=== PATIENT | female | born 1950 | race Caucasian/White ===

== ENCOUNTER 2021-05-04 15:06 | Emergency (ER) | payer MEDICARE, MEDICAID ==
[~2021-05-04] VITALS: Ht 154.9 cm; Wt 68.8 kg
[~2021-05-04 15:06] MED LIST: ALD25T PO; ATOR10TA PO; CALC1TAB77 PO; HCTZ25T PO; HYDR-4383 PO; LISI20TA28 PO; PANT-47 PO; RIVA10TA PO; SIMV10TA2 PO; SOTA80TA73 PO
[2021-05-04 16:27] LABS: BASOPHILS # (AUTO) 0.1 X10'3 (0-0.2); BASOPHILS % (AUTO) 0.7 % (0-1); EOSINOPHILS # (AUTO) 0.1 X10'3 (0-0.9); HEMATOCRIT 44.7 % (35.0-45.0); LYMPHOCYTES # (AUTO) 1.2 X10'3 (1.1-4.8); LYMPHOCYTES % (AUTO) 13.6 % (21-51); MEAN CORPUSCULAR HEMOGLOBIN 32.2 PG (27.0-31.0); MEAN CORPUSCULAR HGB CONC 33.4 g/dL (33.0-36.5); MEAN CORPUSCULAR VOLUME 96.1 FL (78-98); MEAN PLATELET VOLUME 7.9 FL (7.4-10.4); MONOCYTES # (AUTO) 1.1 X10'3 (0-0.9); MONOCYTES % (AUTO) 12.4 % (2-12); NEUTROPHILS # (AUTO) 6.2 X10'3 (1.8-7.7); NEUTROPHILS % (AUTO) 72.3 % (42-75); PLATELET COUNT 249 X10'3 (140-440); RED BLOOD COUNT 4.65 X10'6 (4.20-5.60); RED CELL DISTRIBUTION WIDTH 13.5 % (11.5-14.5); WHITE BLOOD COUNT 8.6 X10'3 (4.5-11.0)
[2021-05-04 16:48] LABS: ALANINE AMINOTRANSFERASE 28 U/L (12-78); ALBUMIN 3.6 G/DL (3.4-5.0); ALKALINE PHOSPHATASE 90 IU/L (46-116); ANION GAP 5 (8-16); ASPARTATE AMINO TRANSFERASE 25 U/L (10-37); BLOOD UREA NITROGEN 26 MG/DL (7-18); BUN/CREATININE RATIO 29.9 (6.6-38.0); CHLORIDE 95 MMOL/L (99-107); CREATININE 0.87 MG/DL (0.40-0.90); GLUCOSE 106 MG/DL (70-104); POTASSIUM 4.3 MMOL/L (3.5-5.1); SODIUM 132 MMOL/L (135-145); TOTAL CARBON DIOXIDE 31.6 MMOL/L (24-32); TOTAL PROTEIN 7.3 G/DL (6.4-8.2); eGFR 65 ML/MIN
[2021-05-04] MEDS ORDERED: furosemide 20MG tablet PO ONE (18:25)
[2021-05-04] MEDS ORDERED: FURO-150 PO (18:26)
[2021-05-04 18:54] VITALS: BP 162/91
== END 2021-05-04 19:02 | disposition home or self-care (01) ==
LOC: ER 15:09
DX: I11.0 Hypertensive heart disease with heart failure (principal); I50.9 Heart failure, unspecified; I48.91 Unspecified atrial fibrillation; F17.200 Nicotine dependence, unspecified, uncomplicated; N17.9 Acute kidney failure, unspecified; G89.29 Other chronic pain; Z96.641 Presence of right artificial hip joint; Z72.89 Other problems related to lifestyle; Z79.899 Other long term (current) drug therapy
CPT/HCPCS: 36415; 71045; 80053; 83880; 84484; 85025; 93005; 99285

== ENCOUNTER 2021-05-05 23:31 | Emergency (ER) | payer MEDICARE, MEDICAID ==
[~2021-05-05] VITALS: Ht 152.4 cm; Wt 68.2 kg
[~2021-05-05 23:31] MED LIST changes: +FURO-150 PO
[2021-05-06 00:43] LABS: BASOPHILS # (AUTO) 0.1 X10'3 (0-0.2); BASOPHILS % (AUTO) 0.8 % (0-1); EOSINOPHILS # (AUTO) 0.1 X10'3 (0-0.9); EOSINOPHILS % (AUTO) 1.6 % (0-6); HEMATOCRIT 45.8 % (35.0-45.0); HEMOGLOBIN 15.8 g/dl (12.0-16.0); LYMPHOCYTES # (AUTO) 1.6 X10'3 (1.1-4.8); LYMPHOCYTES % (AUTO) 20.8 % (21-51); MEAN CORPUSCULAR HGB CONC 34.5 g/dL (33.0-36.5); MEAN CORPUSCULAR VOLUME 92.9 FL (78-98); MEAN PLATELET VOLUME 7.5 FL (7.4-10.4); MONOCYTES # (AUTO) 1.1 X10'3 (0-0.9); MONOCYTES % (AUTO) 15.1 % (2-12); NEUTROPHILS # (AUTO) 4.6 X10'3 (1.8-7.7); NEUTROPHILS % (AUTO) 61.7 % (42-75); PLATELET COUNT 267 X10'3 (140-440); RED BLOOD COUNT 4.92 X10'6 (4.20-5.60); WHITE BLOOD COUNT 7.4 X10'3 (4.5-11.0)
[2021-05-06 00:48] LABS: PARTIAL THROMBOPLASTIN TIME 55 SECONDS (22-32)
[2021-05-06 00:56] LABS: ALANINE AMINOTRANSFERASE 30 U/L (12-78); ALBUMIN 3.6 G/DL (3.4-5.0); ALBUMIN/GLOBULIN RATIO 0.9 (1.1-1.5); ALKALINE PHOSPHATASE 98 IU/L (46-116); ANION GAP 8 (8-16); ASPARTATE AMINO TRANSFERASE 21 U/L (10-37); BLOOD UREA NITROGEN 23 MG/DL (7-18); BUN/CREATININE RATIO 26.4 (6.6-38.0); CALCIUM 9.4 MG/DL (8.5-10.1); CHLORIDE 86 MMOL/L (99-107); CREATININE 0.87 MG/DL (0.40-0.90); GLUCOSE 110 MG/DL (70-104); POTASSIUM 3.8 MMOL/L (3.5-5.1); SODIUM 125 MMOL/L (135-145); TOTAL PROTEIN 7.6 G/DL (6.4-8.2); eGFR 65 ML/MIN
[2021-05-06 01:21] LABS: PLATELET ESTIMATE NORMAL; TOTAL CELLS COUNTED 100
[2021-05-06] MEDS ORDERED: GABA-530 PO (04:47)
[2021-05-06] MEDS ORDERED: AMLO2.5T2 PO (04:48)
[2021-05-06] MEDS ORDERED: LORazepam 1 MG tablet PO ONE (06:15)
[2021-05-06] MEDS ORDERED: LORA-269 PO (06:19)
[2021-05-06 06:24] VITALS: BP 147/84
== END 2021-05-06 06:31 | disposition home or self-care (01) ==
LOC: ER 23:32
DX: I11.0 Hypertensive heart disease with heart failure (principal); I50.9 Heart failure, unspecified; F41.9 Anxiety disorder, unspecified; F17.210 Nicotine dependence, cigarettes, uncomplicated; I48.91 Unspecified atrial fibrillation; G89.29 Other chronic pain; Z72.89 Other problems related to lifestyle; Z96.641 Presence of right artificial hip joint
CPT/HCPCS: 36415; 80053; 83880; 84484; 85007; 85025; 85610; 85730; 93005; 99284; 99285

== ENCOUNTER 2021-10-29 20:55 | Emergency (ER) | payer MEDICARE, MEDICAID ==
[~2021-10-29 20:55] MED LIST changes: +AMLO2.5T2 PO; -FURO-150 PO; +GABA-530 PO; -HYDR-4383 PO; +LORA-269 PO; -PANT-47 PO; -SIMV10TA2 PO; -SOTA80TA73 PO
[2021-10-30] MEDS ORDERED: AMLO5TAB16 PO (12:33)
[2021-10-30] MEDS ORDERED: HYDR25TA4 PO (12:33)
[2021-10-30] MEDS ORDERED: GABA300C PO (12:33)
[2021-10-30] MEDS ORDERED: RIVA20TA PO (12:33)
[2021-10-30] MEDS ORDERED: SPIR25TA5 PO (12:33)
[2021-10-30] MEDS ORDERED: METO50TA16 PO (12:33)
[2021-10-30] MEDS ORDERED: ATOR40TA72 PO (12:33)
[2021-10-30] MEDS ORDERED: LISI10TA27 PO (12:33)
== END 2021-10-29 22:57 | disposition left against medical advice (07) ==
LOC: ER 20:56
DX: J11.1 Influenza due to unidentified influenza virus with other respiratory manifestations (principal); Z53.21 Procedure and treatment not carried out due to patient leaving prior to being seen by health care provider

== ENCOUNTER 2021-10-30 09:14 | Inpatient (IN) | payer MEDICARE, MEDICAID ==
[2021-10-30] VITALS (7 sets, daily range): BP systolic 121–142; BP diastolic 65–85
[~2021-10-30] VITALS: Ht 154.9 cm; Wt 65.9 kg
--- NOTE | 2021-10-30 09:23 | NUR ---
ON ARRIVAL CPAP DC'D. PT SPO2 89% ON RA. T HANDS ARE COLD AND RT IS GETTING HIGHER PULS OX READING THAN WHAT OUR MONITOR SHOWS. CURRENTLY PT ON 3 LTR NC RT SPO2 READING 98%. PT SHOWS NO S/S OF INCREASED WOB.
--- NOTE | 2021-10-30 09:35 | NUR ---
I WAS ALERTED BY EVS STAFF THAT PT WAS ON THE FLOOR. I WENT TO THE BEDSIDE TO FIND PT SITTING UPRIGHT ON THE FLOOR AT THE FOOT OF THE BED. PT WAS BLEEDING FROM IV SITE, NO OTHER INJURIES NOTED. PT VOICED NO COMPLAINTS OF DISCOMFORT OR PAIN. PT WAS ASSISTED TO HER FEET AND SHE WALKED (2 PERSON ASSIST) TO THE BED. 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 WHEN ASKED WHY SHE IS IN THE HOSPITAL SHE STATED " ITS COVID PROBLEMS." NANDO YOUNG WAS NOTIFIED AND CAME TO BEDSIDE FOR ASSESSMENT.
[2021-10-30] MEDS ORDERED: ipratropium/albuterol 3ml nebule NEB ONE (09:40)
[2021-10-30] MEDS ORDERED: methylPREDNISolone sod succ 125mg/2ml vial IV ONE (09:40)
[2021-10-30] MEDS ORDERED: LORazepam 2 mg/ml vial IM ONE (09:40)
--- NOTE | 2021-10-30 09:50 | NUR ---
PT CONT TO TRY TO CLIMB OUT OF BED, PT REDIRECTED BUT QUICKLY FORGETS.
[2021-10-30 10:24] LABS: BASOPHILS % (AUTO) 0.3 % (0-1); EOSINOPHILS % (AUTO) 0.3 % (0-6); HEMATOCRIT 37.6 % (35.0-45.0); LYMPHOCYTES # (AUTO) 0.9 X10'3 (1.1-4.8); LYMPHOCYTES % (AUTO) 9.3 % (21-51); MEAN CORPUSCULAR HEMOGLOBIN 32.1 PG (27.0-31.0); MEAN CORPUSCULAR HGB CONC 34.5 g/dL (33.0-36.5); MEAN CORPUSCULAR VOLUME 92.9 FL (78-98); MEAN PLATELET VOLUME 7.3 FL (7.4-10.4); MONOCYTES # (AUTO) 0.8 X10'3 (0-0.9); NEUTROPHILS # (AUTO) 7.5 X10'3 (1.8-7.7); NEUTROPHILS % (AUTO) 81.1 % (42-75); PLATELET COUNT 255 X10'3 (140-440); RED BLOOD COUNT 4.05 X10'6 (4.20-5.60); RED CELL DISTRIBUTION WIDTH 13.4 % (11.5-14.5); WHITE BLOOD COUNT 9.2 X10'3 (4.5-11.0)
[2021-10-30 10:40] LABS: ALANINE AMINOTRANSFERASE 22 U/L (12-78); ALBUMIN 3.8 G/DL (3.4-5.0); ALBUMIN/GLOBULIN RATIO 1.3 (1.1-1.5); ALKALINE PHOSPHATASE 73 IU/L (46-116); ANION GAP 4 (8-16); ASPARTATE AMINO TRANSFERASE 27 U/L (10-37); BLOOD UREA NITROGEN 12 MG/DL (7-18); BUN/CREATININE RATIO 13.8 (6.6-38.0); CALCIUM 9.1 MG/DL (8.5-10.1); CHLORIDE 71 MMOL/L (99-107); CREATININE 0.87 MG/DL (0.40-0.90); GLUCOSE 120 MG/DL (70-104); POTASSIUM 3.2 MMOL/L (3.5-5.1); TOTAL CARBON DIOXIDE 30.9 MMOL/L (24-32); TOTAL PROTEIN 6.8 G/DL (6.4-8.2); eGFR 65 ML/MIN
[2021-10-30 10:41] LABS: SODIUM 106 MMOL/L (135-145)
[2021-10-30] MEDS ORDERED: normal saline 1000ML IV soln IVB ONE (10:45)
--- NOTE | 2021-10-30 10:48 | NUR ---
PT TO CT, RT, AND RN AT BEDSIDE
--- NOTE | 2021-10-30 11:15 | NUR ---
PT CONTINUES TO CLIMB OUT OF BED. CALLED HOUSE [facility]P TO REQUEST SITTER, NO STAFF AVAIL.
[2021-10-30 11:44] LABS: ANION GAP 8 (8-16); CHLORIDE 70 MMOL/L (99-107); POTASSIUM 3.5 MMOL/L (3.5-5.1); TOTAL CARBON DIOXIDE 24.6 MMOL/L (24-32)
--- NOTE | 2021-10-30 11:52 | NUR ---
PT CLIMBING OUT OF BED, PULLED IV. BLEEDING CONTROLLED. PT ASSISTED BACK TO BED. REQUESTING ORDER FOR SOFT RESTRAINTS. NANDO YOUNG OKAYED AND WILL PLACE ORDER.
[2021-10-30 12:01] LABS: SODIUM 103 MMOL/L (135-145)
[2021-10-30] MEDS ORDERED: HYDROcodone/acetaminophen 5mg/325mg tablet PO PRN (12:10)
[2021-10-30] MEDS ORDERED: morphine 4 MG/ML inj SYRINge IV PRN (12:10)
[2021-10-30] MEDS ORDERED: magnesium hydroxide 30ml (MOM) UD suspension PO PRN (12:10)
[2021-10-30] MEDS ORDERED: potassium Cl 20 mEq SR tablet PO PRN (12:10)
[2021-10-30] MEDS ORDERED: potassium CL 10mEq/100ml bag 100 ML IV PRN (12:10)
[2021-10-30] MEDS ORDERED: ondansetron/PF 4mg/2ml inj IV PRN (12:10)
[2021-10-30] MEDS ORDERED: LIDOcaine 2% 10ml TOPICAL JELLY (Urojet) TP ONE (12:10)
[2021-10-30] MEDS ORDERED: acetaminophen 325mg tablet PO PRN ×2 (12:10)
[2021-10-30] MEDS ORDERED: morphine 2 MG/ML inj. syringe IV PRN (12:10)
[2021-10-30] MEDS ORDERED: AMLO5TAB16 PO (12:33)
[2021-10-30] MEDS ORDERED: SPIR25TA5 PO (12:33)
[2021-10-30] MEDS ORDERED: HYDR25TA4 PO (12:33)
[2021-10-30] MEDS ORDERED: RIVA20TA PO (12:33)
[2021-10-30] MEDS ORDERED: METO50TA16 PO (12:33)
[2021-10-30] MEDS ORDERED: LISI10TA27 PO (12:33)
[2021-10-30] MEDS ORDERED: GABA300C PO (12:33)
[2021-10-30] MEDS ORDERED: ATOR40TA72 PO (12:33)
--- NOTE | 2021-10-30 12:50 | NUR ---
BILATERAL SOFT WRIST RESTRAINTS APPLIED, MD AWARE.
[2021-10-30 13:16] LABS: ALBUMIN 3.9 G/DL (3.4-5.0); ANION GAP 9 (8-16); BLOOD UREA NITROGEN 13 MG/DL (7-18); CALCIUM 9.1 MG/DL (8.5-10.1); CHLORIDE 70 MMOL/L (99-107); CREATININE 0.93 MG/DL (0.40-0.90); ETHANOL < 0.010 GM/DL (0.0-0.010); GLUCOSE 141 MG/DL (70-104); POTASSIUM 3.4 MMOL/L (3.5-5.1); TOTAL CARBON DIOXIDE 28.3 MMOL/L (24-32); eGFR 60 ML/MIN
[2021-10-30 13:28] LABS: SODIUM 107 MMOL/L (135-145)
--- NOTE | 2021-10-30 13:40 | NUR ---
PT PULLED WRISTS OUT OF RESTRAINTS. RESTRAINTS REAPPLIED
--- NOTE | 2021-10-30 14:20 | NUR ---
PT PULLED WRIST OUT OF RESTRAINT, IV DISLODGED. BLEEDING CONTROLLED.
[2021-10-30 14:21] LABS: CLARITY,URINE CLEAR (Clear); COLOR,URINE YELLOW (Yellow); GLUCOSE, URINE NEGATIVE (Neg); KETONES,URINE NEGATIVE (Neg); LEUKOCYTE ESTERASE ,URINE NEGATIVE (Neg); NITRITES, URINE NEGATIVE (Neg); OCCULT BLOOD,URINE TRACE-INTACT (Neg); PH,URINE 7.5 (4.8-8.0); PROTEIN,URINE NEGATIVE (Neg)
[2021-10-30 14:23] LABS: OSMOLALITY UA 292 MOSM/K (50-1400)
[2021-10-30 14:26] LABS: UA COLLECTION TYPE STRAIGHT CATH
[2021-10-30 14:27] LABS: SODIUM,URINE RANDOM 40 MEQ/L; WBC,URINE NONE SEEN /HPF (0-4)
[2021-10-30 14:28] LABS: BACTERIA,URINE NONE SEEN /HPF (Neg); MUCUS STRANDS NONE SEEN /LPF (Neg); SQUAMOUS EPITHELIAL CELL,UR FEW /LPF (FEW)
--- NOTE | 2021-10-30 17:00 | NUR ---
Recevied pt from ER via amy. Report received. Patient able to answer orientation questions but then says she's confused. Very anxious and restless. No S/S tremors or seizure activity. Restraints on d/t patient pulling out IV lines and patient fell yesterday. In atrial fib. BP stable. No peripheral edema. BS clear but diminished at bases. On O2 @ 3l via n/c. No dyspnea. F/C draining clear yellow urine. No skin breakdown noted but noted to have 2 large bruises on right flank. Areas marked with Sharpie to evaluate for increase in size.
[2021-10-30 17:36] LABS: ALBUMIN 3.7 G/DL (3.4-5.0); ANION GAP 12 (8-16); BLOOD UREA NITROGEN 12 MG/DL (7-18); BUN/CREATININE RATIO 14.5 (6.6-38.0); CALCIUM 8.4 MG/DL (8.5-10.1); CHLORIDE 73 MMOL/L (99-107); CREATININE 0.83 MG/DL (0.40-0.90); GLUCOSE 153 MG/DL (70-104); TOTAL CARBON DIOXIDE 23.9 MMOL/L (24-32); eGFR 68 ML/MIN
[2021-10-30 17:49] LABS: POTASSIUM 3.5 MMOL/L (3.5-5.1); SODIUM 109 MMOL/L (135-145)
[2021-10-30] MEDS: normal saline 1000ml 1,000 ML IV SCH (17:58)
--- NOTE | 2021-10-30 18:12 | NUR ---
Problems reprioritized. Patient report given, questions answered & plan of care reviewed with Rey SOLARES.
--- NOTE | 2021-10-30 22:00 | NUR ---
PT desaturated to 40's patient was cyanotic and not breathing for about 20 seconds. She began breathing and her saturations came back up, she was acting lethargic but was able to follow some commands. Dr Saleh was notified, he said it might be the low sodium causing seizures.
--- NOTE | 2021-10-30 23:30 | NUR ---
The patient appeared to have another seizure. pt paused desaturated and became rigid and looked to the left for 20 minutes. she then started to breath and her cyanosis went away and so did her saturations. Dr noel notified, some Keppra was ordered.
[2021-10-30 23:47] LABS: ALANINE AMINOTRANSFERASE 24 U/L (12-78); ALBUMIN 3.8 G/DL (3.4-5.0); ALBUMIN/GLOBULIN RATIO 1.2 (1.1-1.5); ALKALINE PHOSPHATASE 72 IU/L (46-116); ANION GAP 10 (8-16); ASPARTATE AMINO TRANSFERASE 35 U/L (10-37); BILIRUBIN,TOTAL 1.9 MG/DL (0.1-1.0); BLOOD UREA NITROGEN 12 MG/DL (7-18); BUN/CREATININE RATIO 14.8 (6.6-38.0); CALCIUM 8.3 MG/DL (8.5-10.1); CHLORIDE 75 MMOL/L (99-107); CREATININE 0.81 MG/DL (0.40-0.90); GLUCOSE 182 MG/DL (70-104); POTASSIUM 3.6 MMOL/L (3.5-5.1); TOTAL CARBON DIOXIDE 24.5 MMOL/L (24-32); eGFR 70 ML/MIN
[2021-10-30 23:53] LABS: SODIUM 109 MMOL/L (135-145)
[2021-10-31] VITALS (24 sets, daily range): BP systolic 90–130; BP diastolic 42–80
[2021-10-31] MEDS ORDERED: levetiracetam inj 500 MG in normal saline 100ml IV soln 100 ML IV ONE (00:30)
[2021-10-31] MEDS: heparin, porcine 5000 units/ml vial SQ SCH ×2 (00:48→09:17)
--- NOTE | 2021-10-31 02:04 | NUR ---
PT sodium was still 109, dr noel notified, he increased to NS to 75.
[2021-10-31 06:29] LABS: BASOPHILS % (AUTO) 0.2 % (0-1); EOSINOPHILS % (AUTO) 0 % (0-6); HEMATOCRIT 34.8 % (35.0-45.0); HEMOGLOBIN 12.1 g/dl (12.0-16.0); LYMPHOCYTES # (AUTO) 0.4 X10'3 (1.1-4.8); LYMPHOCYTES % (AUTO) 4.6 % (21-51); MEAN CORPUSCULAR HEMOGLOBIN 32.7 PG (27.0-31.0); MEAN CORPUSCULAR HGB CONC 34.7 g/dL (33.0-36.5); MEAN CORPUSCULAR VOLUME 94.2 FL (78-98); MEAN PLATELET VOLUME 7.8 FL (7.4-10.4); MONOCYTES # (AUTO) 0.7 X10'3 (0-0.9); MONOCYTES % (AUTO) 7.6 % (2-12); NEUTROPHILS # (AUTO) 8.2 X10'3 (1.8-7.7); NEUTROPHILS % (AUTO) 87.6 % (42-75); PLATELET COUNT 236 X10'3 (140-440); RED BLOOD COUNT 3.69 X10'6 (4.20-5.60); RED CELL DISTRIBUTION WIDTH 13.7 % (11.5-14.5); WHITE BLOOD COUNT 9.4 X10'3 (4.5-11.0)
[2021-10-31 07:20] LABS: ALANINE AMINOTRANSFERASE 23 U/L (12-78); ALBUMIN 3.4 G/DL (3.4-5.0); ALBUMIN/GLOBULIN RATIO 1.3 (1.1-1.5); ALKALINE PHOSPHATASE 59 IU/L (46-116); ANION GAP 6 (8-16); ASPARTATE AMINO TRANSFERASE 34 U/L (10-37); BILIRUBIN,TOTAL 1.5 MG/DL (0.1-1.0); BLOOD UREA NITROGEN 11 MG/DL (7-18); BUN/CREATININE RATIO 14.5 (6.6-38.0); CALCIUM 7.9 MG/DL (8.5-10.1); CHLORIDE 78 MMOL/L (99-107); CREATININE 0.76 MG/DL (0.40-0.90); GLUCOSE 121 MG/DL (70-104); MAGNESIUM 1.3 MG/DL (1.5-2.4); PHOSPHORUS 2.8 MG/DL (2.3-4.5); POTASSIUM 3.1 MMOL/L (3.5-5.1); TOTAL CARBON DIOXIDE 27.8 MMOL/L (24-32); TOTAL PROTEIN 6.1 G/DL (6.4-8.2); eGFR 75 ML/MIN
[2021-10-31 07:27] LABS: SODIUM 112 MMOL/L (135-145)
[2021-10-31] MEDS: K and/or MAG REPLACEMENT MC SCH (08:00)
[2021-10-31] MEDS: levetiracetam inj 500 MG in normal saline 100ml IV soln 100 ML IV SCH ×2 (09:17→22:28)
[2021-10-31] MEDS: potassium Cl 20 mEq SR tablet PO PRN ×2 (09:17→12:15)
--- NOTE | 2021-10-31 11:51 | NUR ---
Kory Consult: Pt admit DX hyponatremia serum Na 103mmol/L on admit now up to 112mmol/L this AM. Hx heavy etoh per EMR w/ thiamin, folic, MVI to start today per MD. Horn 12 w/ no edema and skin intact per EMR. Addendum: 10/31/21 at [address] Amended: Links added.
[2021-10-31] MEDS: normal saline 1000ml 1,000 ML IV SCH (12:00)
[2021-10-31] MEDS: folic acid 1mg tablet PO SCH (12:15)
[2021-10-31] MEDS: thiamine 100mg tablet PO SCH (12:15)
[2021-10-31] MEDS: nicotine 21mg patch - 24 hr TD SCH (12:16)
[2021-10-31] MEDS: multivitamins, therapeutics tablet PO SCH (12:17)
[2021-10-31 13:21] LABS: SODIUM,URINE RANDOM < 15 MEQ/L
[2021-10-31 13:41] LABS: OSMOLALITY UA 266 MOSM/K (50-1400)
[2021-10-31 14:09] LABS: ALBUMIN 3.3 G/DL (3.4-5.0); ANION GAP 7 (8-16); BLOOD UREA NITROGEN 9 MG/DL (7-18); BUN/CREATININE RATIO 14.8 (6.6-38.0); CALCIUM 8.1 MG/DL (8.5-10.1); CHLORIDE 80 MMOL/L (99-107); CREATININE 0.61 MG/DL (0.40-0.90); GLUCOSE 110 MG/DL (70-104); TOTAL CARBON DIOXIDE 27.4 MMOL/L (24-32); eGFR > 90 ML/MIN
[2021-10-31 14:10] LABS: POTASSIUM 3.3 MMOL/L (3.5-5.1)
[2021-10-31 14:12] LABS: SODIUM 114 MMOL/L (135-145)
--- NOTE | 2021-10-31 19:00 | NUR ---
Patient in room ICU 2044. I have received report from am rn and had the opportunity to ask questions and assume patient care.
[2021-10-31 19:54] LABS: ALBUMIN 3.2 G/DL (3.4-5.0); ANION GAP 4 (8-16); BLOOD UREA NITROGEN 9 MG/DL (7-18); BUN/CREATININE RATIO 15.5 (6.6-38.0); CHLORIDE 85 MMOL/L (99-107); CREATININE 0.58 MG/DL (0.40-0.90); GLUCOSE 106 MG/DL (70-104); POTASSIUM 3.3 MMOL/L (3.5-5.1); TOTAL CARBON DIOXIDE 26.1 MMOL/L (24-32); eGFR > 90 ML/MIN
[2021-10-31 19:56] LABS: SODIUM 115 MMOL/L (135-145)
[2021-11-01] VITALS (22 sets, daily range): BP systolic 89–126; BP diastolic 38–76
[2021-11-01 02:02] LABS: ALANINE AMINOTRANSFERASE 22 U/L (12-78); ALBUMIN 3.1 G/DL (3.4-5.0); ALBUMIN/GLOBULIN RATIO 1.2 (1.1-1.5); ALKALINE PHOSPHATASE 55 IU/L (46-116); ANION GAP 4 (8-16); ASPARTATE AMINO TRANSFERASE 29 U/L (10-37); BILIRUBIN,TOTAL 1.1 MG/DL (0.1-1.0); BLOOD UREA NITROGEN 8 MG/DL (7-18); BUN/CREATININE RATIO 14.3 (6.6-38.0); CALCIUM 7.9 MG/DL (8.5-10.1); CHLORIDE 87 MMOL/L (99-107); CREATININE 0.56 MG/DL (0.40-0.90); GLUCOSE 90 MG/DL (70-104); MAGNESIUM 1.7 MG/DL (1.5-2.4); PHOSPHORUS 1.8 MG/DL (2.3-4.5); POTASSIUM 3.3 MMOL/L (3.5-5.1); TOTAL CARBON DIOXIDE 27.1 MMOL/L (24-32); TOTAL PROTEIN 5.6 G/DL (6.4-8.2); eGFR > 90 ML/MIN
[2021-11-01 02:04] LABS: SODIUM 118 MMOL/L (135-145)
[2021-11-01] MEDS: potassium Cl 20 mEq SR tablet PO PRN (05:06)
[2021-11-01 07:06] LABS: BASOPHILS % (AUTO) 0.1 % (0-1); EOSINOPHILS % (AUTO) 0.1 % (0-6); HEMATOCRIT 32.2 % (35.0-45.0); HEMOGLOBIN 11.2 g/dl (12.0-16.0); LYMPHOCYTES # (AUTO) 0.7 X10'3 (1.1-4.8); LYMPHOCYTES % (AUTO) 7.4 % (21-51); MEAN CORPUSCULAR HEMOGLOBIN 33.3 PG (27.0-31.0); MEAN CORPUSCULAR HGB CONC 34.9 g/dL (33.0-36.5); MEAN CORPUSCULAR VOLUME 95.4 FL (78-98); MEAN PLATELET VOLUME 7.8 FL (7.4-10.4); MONOCYTES # (AUTO) 1.2 X10'3 (0-0.9); MONOCYTES % (AUTO) 13.6 % (2-12); NEUTROPHILS % (AUTO) 78.8 % (42-75); PLATELET COUNT 210 X10'3 (140-440); RED BLOOD COUNT 3.38 X10'6 (4.20-5.60); RED CELL DISTRIBUTION WIDTH 13.8 % (11.5-14.5); WHITE BLOOD COUNT 8.9 X10'3 (4.5-11.0)
[2021-11-01 07:12] LABS: ALBUMIN 2.9 G/DL (3.4-5.0); ANION GAP 4 (8-16); BLOOD UREA NITROGEN 9 MG/DL (7-18); BUN/CREATININE RATIO 16.1 (6.6-38.0); CALCIUM 7.9 MG/DL (8.5-10.1); CHLORIDE 91 MMOL/L (99-107); CREATININE 0.56 MG/DL (0.40-0.90); GLUCOSE 82 MG/DL (70-104); POTASSIUM 3.4 MMOL/L (3.5-5.1); SODIUM 123 MMOL/L (135-145); TOTAL CARBON DIOXIDE 27.8 MMOL/L (24-32); eGFR > 90 ML/MIN
[2021-11-01] MEDS: levetiracetam inj 500 MG in normal saline 100ml IV soln 100 ML IV SCH ×2 (08:00→20:03)
[2021-11-01] MEDS: atorvastatin 20mg tablet PO SCH (08:00)
[2021-11-01] MEDS: thiamine 100mg tablet PO SCH (08:00)
[2021-11-01] MEDS: multivitamins, therapeutics tablet PO SCH (08:00)
[2021-11-01] MEDS: K and/or MAG REPLACEMENT MC SCH (08:00)
[2021-11-01] MEDS: amLODIPine 5mg tablet PO SCH (08:00)
[2021-11-01] MEDS: folic acid 1mg tablet PO SCH (08:00)
[2021-11-01] MEDS: nicotine 21mg patch - 24 hr TD SCH (08:00)
[2021-11-01] MEDS: normal saline 1000ml 1,000 ML IV SCH (09:12)
[2021-11-01 13:27] LABS: ALBUMIN 3.2 G/DL (3.4-5.0); ANION GAP 6 (8-16); BLOOD UREA NITROGEN 7 MG/DL (7-18); BUN/CREATININE RATIO 12.7 (6.6-38.0); CALCIUM 8.3 MG/DL (8.5-10.1); CHLORIDE 92 MMOL/L (99-107); CREATININE 0.55 MG/DL (0.40-0.90); GLUCOSE 81 MG/DL (70-104); POTASSIUM 3.6 MMOL/L (3.5-5.1); SODIUM 127 MMOL/L (135-145); eGFR > 90 ML/MIN
[2021-11-01] MEDS: rivaroxaban 20mg tablet PO SCH (19:03)
[2021-11-01 19:48] LABS: ALBUMIN 3.3 G/DL (3.4-5.0); ANION GAP 7 (8-16); BLOOD UREA NITROGEN 7 MG/DL (7-18); BUN/CREATININE RATIO 12.3 (6.6-38.0); CALCIUM 8.6 MG/DL (8.5-10.1); CHLORIDE 95 MMOL/L (99-107); CREATININE 0.57 MG/DL (0.40-0.90); GLUCOSE 93 MG/DL (70-104); POTASSIUM 3.7 MMOL/L (3.5-5.1); SODIUM 130 MMOL/L (135-145); TOTAL CARBON DIOXIDE 28.1 MMOL/L (24-32); eGFR > 90 ML/MIN
--- NOTE | 2021-11-01 20:50 | NUR ---
Report given to diane RN, pt transferred to PCU via wheelchair.
--- NOTE | 2021-11-01 21:10 | NUR ---
PATIENT TRANSFERRED FROM ICU AND WILL CONTINUE TO MONITOR.
[2021-11-02] VITALS (11 sets, daily range): BP systolic 92–139; BP diastolic 50–80
--- NOTE | 2021-11-02 06:47 | NUR ---
Problems reprioritized. Patient report given, questions answered & plan of care reviewed with DONTRELL SOLARES.
[2021-11-02 07:25] LABS: BASOPHILS % (AUTO) 0.3 % (0-1); EOSINOPHILS % (AUTO) 0.1 % (0-6); HEMATOCRIT 32.3 % (35.0-45.0); LYMPHOCYTES # (AUTO) 0.9 X10'3 (1.1-4.8); LYMPHOCYTES % (AUTO) 9.9 % (21-51); MEAN CORPUSCULAR HEMOGLOBIN 32.5 PG (27.0-31.0); MEAN CORPUSCULAR VOLUME 95.7 FL (78-98); MEAN PLATELET VOLUME 7.5 FL (7.4-10.4); MONOCYTES # (AUTO) 1.4 X10'3 (0-0.9); MONOCYTES % (AUTO) 15.1 % (2-12); NEUTROPHILS # (AUTO) 6.9 X10'3 (1.8-7.7); NEUTROPHILS % (AUTO) 74.6 % (42-75); PLATELET COUNT 207 X10'3 (140-440); RED BLOOD COUNT 3.37 X10'6 (4.20-5.60); RED CELL DISTRIBUTION WIDTH 14.5 % (11.5-14.5); WHITE BLOOD COUNT 9.2 X10'3 (4.5-11.0)
[2021-11-02 07:48] LABS: ALANINE AMINOTRANSFERASE 23 U/L (12-78); ALBUMIN 2.9 G/DL (3.4-5.0); ALBUMIN/GLOBULIN RATIO 1.2 (1.1-1.5); ALKALINE PHOSPHATASE 51 IU/L (46-116); ANION GAP 6 (8-16); ASPARTATE AMINO TRANSFERASE 20 U/L (10-37); BLOOD UREA NITROGEN 6 MG/DL (7-18); BUN/CREATININE RATIO 11.8 (6.6-38.0); CALCIUM 8.3 MG/DL (8.5-10.1); CHLORIDE 99 MMOL/L (99-107); CREATININE 0.51 MG/DL (0.40-0.90); GLUCOSE 79 MG/DL (70-104); MAGNESIUM 1.8 MG/DL (1.5-2.4); PHOSPHORUS 1.3 MG/DL (2.3-4.5); POTASSIUM 3.8 MMOL/L (3.5-5.1); SODIUM 132 MMOL/L (135-145); TOTAL CARBON DIOXIDE 27.1 MMOL/L (24-32); TOTAL PROTEIN 5.4 G/DL (6.4-8.2); eGFR > 90 ML/MIN
[2021-11-02] MEDS: amLODIPine 5mg tablet PO SCH (08:00)
[2021-11-02] MEDS: K and/or MAG REPLACEMENT MC SCH (08:00)
[2021-11-02] MEDS: nicotine 21mg patch - 24 hr TD SCH ×2 (08:00→10:16)
[2021-11-02] MEDS: folic acid 1mg tablet PO SCH (09:30)
--- NOTE | 2021-11-02 09:30 | NUR ---
PAGER ID: [phone] MESSAGE: Sonido RICHARD [id number] HR 130S-170 AFIB AND RVR SCHEDULED AMLODIPINE 5MG NOT GIVEN YET. wILL GIVE. ANY OTHER ORDERS? Virgie SUH [id number]
[2021-11-02] MEDS: thiamine 100mg tablet PO SCH (09:31)
[2021-11-02] MEDS: atorvastatin 20mg tablet PO SCH (09:36)
[2021-11-02] MEDS: multivitamins, therapeutics tablet PO SCH (09:36)
--- NOTE | 2021-11-02 09:36 | NUR ---
PAGER ID: [phone] MESSAGE: Sonido RICHARD. [id number] UNABLE TO GIVE AMLODAPINE R/T SBP UNDER 100. HR 147 AND BP 96/62. bLOOD IN MULLINS. dO YOU WANT CBC? DONTRELL [id number] TELE
[2021-11-02] MEDS: levetiracetam inj 500 MG in normal saline 100ml IV soln 100 ML IV SCH ×2 (09:37→19:12)
[2021-11-02] MEDS ORDERED: LORazepam 2 mg/ml vial IV ONE (09:50)
[2021-11-02] MEDS ORDERED: normal saline 500ml IV soln 500 ML IV ONE ×2 (10:00→15:15)
[2021-11-02] MEDS: metoprolol tartrate 1mg/ml inj IV STA ×2 (10:09→10:19)
[2021-11-02] MEDS: normal saline 1000ml 1,000 ML IV SCH ×2 (10:09→12:36)
--- NOTE | 2021-11-02 10:28 | NUR ---
PER RETORT FORKER, BLOOD IN F/C R/T PT PULLING ON F/C IN ICU. HOSPITALIST DOES NOT WANT FIDEL WADDELL.
[2021-11-02] MEDS ORDERED: potassium phosphate inj 30 MMOL in normal saline 500ml IV soln 500 ML IV ONE (10:30)
--- NOTE | 2021-11-02 14:00 | NUR ---
Pt. SO alisa called a little agro over pt. not being able to reach TV. Went and assisted pt. and told would call him back w/ update.
--- NOTE | 2021-11-02 14:14 | NUR ---
Called Pelon back to give update. Line busy.
--- NOTE | 2021-11-02 14:37 | NUR ---
Pt. transferred to room 302.
--- NOTE | 2021-11-02 15:07 | NUR ---
PAGER ID: [phone] MESSAGE: Jen Chen [id number] Pt only has 200ml watson output in f/c. Bladder scanned and no retention. Do you want a bolus? Lubna [phone]
--- NOTE | 2021-11-02 15:34 | NUR ---
Called Pelon - gave extensive update
--- NOTE | 2021-11-02 16:35 | NUR ---
PAGER ID: [phone] MESSAGE: Jen Rodríguez [id number] HR in 160s again at rest BP 129/67 Lubna [id number]
[2021-11-02] MEDS ORDERED: metoprolol tartrate 1mg/ml inj IV ONE (16:40)
[2021-11-02] MEDS: rivaroxaban 20mg tablet PO SCH (16:47)
--- NOTE | 2021-11-02 17:02 | NUR ---
PAGER ID: [phone] MESSAGE: Jen Rodríguez [id number] BP 118/80 HR 87-100 PLease call to confirm second 5mg dose of IV Lopressor. Thank you Lubna [phone]
--- NOTE | 2021-11-02 18:31 | NUR ---
GAVE REPORT TO NEYMAR SOLARES.
[2021-11-02] MEDS: metoprolol tartrate 25mg tablet PO SCH (19:16)
[2021-11-03 04:00] VITALS: BP 137/81
[2021-11-03 06:53] LABS: BASOPHILS % (AUTO) 0.5 % (0-1); EOSINOPHILS % (AUTO) 0.2 % (0-6); HEMATOCRIT 31.9 % (35.0-45.0); HEMOGLOBIN 10.8 g/dl (12.0-16.0); LYMPHOCYTES # (AUTO) 0.8 X10'3 (1.1-4.8); LYMPHOCYTES % (AUTO) 9.3 % (21-51); MEAN CORPUSCULAR HEMOGLOBIN 33.3 PG (27.0-31.0); MEAN CORPUSCULAR HGB CONC 33.8 g/dL (33.0-36.5); MEAN CORPUSCULAR VOLUME 98.6 FL (78-98); MEAN PLATELET VOLUME 7.2 FL (7.4-10.4); MONOCYTES # (AUTO) 1.7 X10'3 (0-0.9); MONOCYTES % (AUTO) 19.5 % (2-12); NEUTROPHILS # (AUTO) 6.2 X10'3 (1.8-7.7); NEUTROPHILS % (AUTO) 70.5 % (42-75); PLATELET COUNT 194 X10'3 (140-440); RED BLOOD COUNT 3.23 X10'6 (4.20-5.60); RED CELL DISTRIBUTION WIDTH 14.5 % (11.5-14.5); WHITE BLOOD COUNT 8.7 X10'3 (4.5-11.0)
[2021-11-03 07:15] LABS: ALANINE AMINOTRANSFERASE 20 U/L (12-78); ALBUMIN 2.4 G/DL (3.4-5.0); ALBUMIN/GLOBULIN RATIO 0.9 (1.1-1.5); ALKALINE PHOSPHATASE 48 IU/L (46-116); ANION GAP 8 (8-16); ASPARTATE AMINO TRANSFERASE 16 U/L (10-37); BLOOD UREA NITROGEN 7 MG/DL (7-18); BUN/CREATININE RATIO 14.9 (6.6-38.0); CALCIUM 7.5 MG/DL (8.5-10.1); CHLORIDE 104 MMOL/L (99-107); CREATININE 0.47 MG/DL (0.40-0.90); GLUCOSE 90 MG/DL (70-104); MAGNESIUM 1.6 MG/DL (1.5-2.4); PHOSPHORUS 1.7 MG/DL (2.3-4.5); POTASSIUM 4.1 MMOL/L (3.5-5.1); SODIUM 136 MMOL/L (135-145); TOTAL CARBON DIOXIDE 24.5 MMOL/L (24-32); TOTAL PROTEIN 5.2 G/DL (6.4-8.2); eGFR > 90 ML/MIN
[2021-11-03 07:44] LABS: PLATELET ESTIMATE NORMAL; TOTAL CELLS COUNTED 100
[2021-11-03] MEDS: thiamine 100mg tablet PO SCH (08:00)
[2021-11-03 09:18] VITALS: BP 108/63
[2021-11-03] MEDS: levetiracetam inj 500 MG in normal saline 100ml IV soln 100 ML IV SCH ×2 (09:27→20:30)
[2021-11-03] MEDS: atorvastatin 20mg tablet PO SCH (09:28)
[2021-11-03] MEDS: amLODIPine 5mg tablet PO SCH (09:28)
[2021-11-03] MEDS: folic acid 1mg tablet PO SCH (09:28)
[2021-11-03] MEDS: metoprolol tartrate 25mg tablet PO SCH ×2 (09:29→20:32)
[2021-11-03] MEDS: multivitamins, therapeutics tablet PO SCH (09:29)
[2021-11-03 11:00] VITALS: BP 108/63
[2021-11-03 15:51] VITALS: BP 118/79
[2021-11-03] MEDS: normal saline 1000ml 1,000 ML IV SCH (15:54)
[2021-11-03 18:37] VITALS: BP 123/78
[2021-11-03] MEDS: rivaroxaban 20mg tablet PO SCH (20:32)
[2021-11-03 22:00] VITALS: BP 112/63
[2021-11-04 02:00] VITALS: BP 121/67
[2021-11-04 06:00] VITALS: BP 117/68
[2021-11-04 07:56] LABS: BASOPHILS % (AUTO) 0.7 % (0-1); EOSINOPHILS # (AUTO) 0.2 X10'3 (0-0.9); EOSINOPHILS % (AUTO) 2.3 % (0-6); HEMATOCRIT 32.9 % (35.0-45.0); HEMOGLOBIN 11.1 g/dl (12.0-16.0); LYMPHOCYTES # (AUTO) 0.7 X10'3 (1.1-4.8); LYMPHOCYTES % (AUTO) 10.6 % (21-51); MEAN CORPUSCULAR HEMOGLOBIN 32.7 PG (27.0-31.0); MEAN CORPUSCULAR HGB CONC 33.7 g/dL (33.0-36.5); MEAN CORPUSCULAR VOLUME 97.2 FL (78-98); MEAN PLATELET VOLUME 7.7 FL (7.4-10.4); MONOCYTES # (AUTO) 1.1 X10'3 (0-0.9); MONOCYTES % (AUTO) 17.1 % (2-12); NEUTROPHILS # (AUTO) 4.5 X10'3 (1.8-7.7); NEUTROPHILS % (AUTO) 69.3 % (42-75); PLATELET COUNT 207 X10'3 (140-440); RED BLOOD COUNT 3.39 X10'6 (4.20-5.60); RED CELL DISTRIBUTION WIDTH 14.5 % (11.5-14.5); WHITE BLOOD COUNT 6.5 X10'3 (4.5-11.0)
[2021-11-04] MEDS ORDERED: Levetiracetam-NS 500mg/100ml 100 ML IV SCH (08:00)
[2021-11-04 08:14] LABS: ALANINE AMINOTRANSFERASE 14 U/L (12-78); ALBUMIN 2.4 G/DL (3.4-5.0); ALBUMIN/GLOBULIN RATIO 0.8 (1.1-1.5); ALKALINE PHOSPHATASE 52 IU/L (46-116); ANION GAP 8 (8-16); ASPARTATE AMINO TRANSFERASE 23 U/L (10-37); BILIRUBIN,TOTAL 0.8 MG/DL (0.1-1.0); BLOOD UREA NITROGEN 5 MG/DL (7-18); BUN/CREATININE RATIO 10.9 (6.6-38.0); CALCIUM 7.4 MG/DL (8.5-10.1); CHLORIDE 106 MMOL/L (99-107); CREATININE 0.46 MG/DL (0.40-0.90); GLUCOSE 86 MG/DL (70-104); MAGNESIUM 1.5 MG/DL (1.5-2.4); PHOSPHORUS 1.5 MG/DL (2.3-4.5); SODIUM 137 MMOL/L (135-145); TOTAL CARBON DIOXIDE 23.2 MMOL/L (24-32); TOTAL PROTEIN 5.4 G/DL (6.4-8.2); eGFR > 90 ML/MIN
[2021-11-04] MEDS: nicotine 21mg patch - 24 hr TD SCH (08:24)
[2021-11-04] MEDS: thiamine 100mg tablet PO SCH (08:24)
[2021-11-04] MEDS: multivitamins, therapeutics tablet PO SCH (08:24)
[2021-11-04] MEDS: folic acid 1mg tablet PO SCH (08:26)
[2021-11-04] MEDS: metoprolol tartrate 25mg tablet PO SCH (08:26)
[2021-11-04] MEDS: atorvastatin 20mg tablet PO SCH (08:26)
[2021-11-04] MEDS: amLODIPine 5mg tablet PO SCH (08:27)
[2021-11-04 10:39] LABS: PLATELET ESTIMATE NORMAL; TOTAL CELLS COUNTED 100
[2021-11-04 11:00] VITALS: BP 116/68
[2021-11-04] MEDS ORDERED: THIA50TA10 PO (12:02)
[2021-11-04] MEDS ORDERED: thiamine tablet PO (12:02)
[2021-11-04] MEDS ORDERED: NICO-687 TD (12:02)
[2021-11-04] MEDS ORDERED: FOLI0.4T6 PO (12:02)
[2021-11-04] MEDS ORDERED: MULT-25 PO (12:02)
== END 2021-11-04 12:38 | disposition home or self-care (01) | DRG 640 ==
LOC: ER 09:15 → ED HOLD 12:13 → ICU 2S 17:05 → PCU 3S 11-01 21:15
PROVIDERS: ADMIT Internal Medicine Critical Care Medicine; ATTEND Internal Medicine Critical Care Medicine
DX: E87.1 Hypo-osmolality and hyponatremia (principal); J96.21 Acute and chronic respiratory failure with hypoxia; G93.41 Metabolic encephalopathy; I50.43 Acute on chronic combined systolic (congestive) and diastolic (congestive) heart failure; J44.1 Chronic obstructive pulmonary disease with (acute) exacerbation; Z20.822 Contact with and (suspected) exposure to COVID-19; I11.0 Hypertensive heart disease with heart failure; E78.5 Hyperlipidemia, unspecified; D64.9 Anemia, unspecified; I95.9 Hypotension, unspecified; I48.91 Unspecified atrial fibrillation; E83.39 Other disorders of phosphorus metabolism; F17.200 Nicotine dependence, unspecified, uncomplicated; Z96.641 Presence of right artificial hip joint; F41.9 Anxiety disorder, unspecified; G89.29 Other chronic pain; Z79.899 Other long term (current) drug therapy; Z79.01 Long term (current) use of anticoagulants
CPT/HCPCS: 36415; 70450; 71045; 80048; 80051; 80053; 80320; 81001; 82948; 83735; 83880; 83935; 84100; 84300; 84443; 85007; 85025; 87635; 94640; 96372; 96374; 97116; 97161; 97530; 97535; 99291; 99292; G0378; J1644; J1953; J2060; J2270; J2930; J3490; J7030; J7040

== ENCOUNTER 2022-01-07 08:29 | Emergency (ER) | payer MEDICARE, MEDICAID ==
[~2022-01-07] VITALS: Ht 152.4 cm; Wt 67.7 kg
[~2022-01-07 08:29] MED LIST changes: +ACET-655 PO; -ALD25T PO; -AMLO2.5T2 PO; -ATOR10TA PO; +ATOR40TA72 PO; -CALC1TAB77 PO; +FLUT16SP26 NAS; +FURO40TA4 PO; -GABA-530 PO; +GABA300C PO; -HCTZ25T PO; +LISI10TA27 PO; -LISI20TA28 PO; +LORA-268 PO; -LORA-269 PO; +METO50TA16 PO; -RIVA10TA PO; +RIVA20TA PO; +SPIR25TA5 PO
[2022-01-07] MEDS ORDERED: LORazepam 0.5 MG tablet PO PRN (09:30)
--- NOTE | 2022-01-07 09:40 | NUR ---
Celia hopper in [facility] - 01/07/22 at 0950 by KENDAL Pt given and understands d/c instructions. Ambulatory with a steady gait.
[2022-01-07 09:41] LABS: BASOPHILS # (AUTO) 0.1 X10'3 (0-0.2); BASOPHILS % (AUTO) 0.8 % (0-1); EOSINOPHILS # (AUTO) 0.1 X10'3 (0-0.9); EOSINOPHILS % (AUTO) 0.9 % (0-6); HEMATOCRIT 37.6 % (35.0-45.0); HEMOGLOBIN 12.4 g/dl (12.0-16.0); LYMPHOCYTES # (AUTO) 0.8 X10'3 (1.1-4.8); LYMPHOCYTES % (AUTO) 8.5 % (21-51); MEAN CORPUSCULAR HEMOGLOBIN 32.1 PG (27.0-31.0); MEAN CORPUSCULAR VOLUME 97.3 FL (78-98); MEAN PLATELET VOLUME 7.6 FL (7.4-10.4); MONOCYTES # (AUTO) 0.9 X10'3 (0-0.9); MONOCYTES % (AUTO) 9.8 % (2-12); NEUTROPHILS # (AUTO) 7.5 X10'3 (1.8-7.7); PLATELET COUNT 242 X10'3 (140-440); RED BLOOD COUNT 3.86 X10'6 (4.20-5.60); RED CELL DISTRIBUTION WIDTH 15.5 % (11.5-14.5); WHITE BLOOD COUNT 9.3 X10'3 (4.5-11.0)
[2022-01-07 09:55] LABS: ALANINE AMINOTRANSFERASE 48 U/L (12-78); ALBUMIN 3.6 G/DL (3.4-5.0); ALKALINE PHOSPHATASE 87 IU/L (46-116); ANION GAP 9 (8-16); ASPARTATE AMINO TRANSFERASE 38 U/L (10-37); BILIRUBIN,TOTAL 0.9 MG/DL (0.1-1.0); BLOOD UREA NITROGEN 22 MG/DL (7-18); CALCIUM 9.5 MG/DL (8.5-10.1); CHLORIDE 99 MMOL/L (99-107); GLUCOSE 149 MG/DL (70-104); POTASSIUM 3.9 MMOL/L (3.5-5.1); SODIUM 138 MMOL/L (135-145); TOTAL CARBON DIOXIDE 30.5 MMOL/L (24-32); TOTAL PROTEIN 7.1 G/DL (6.4-8.2); eGFR 55 ML/MIN
[2022-01-07] MEDS ORDERED: furosemide 40mg/4ml inj IV ONE (10:20)
[2022-01-07] MEDS ORDERED: LORA-269 PO (10:58)
[2022-01-07 11:00] VITALS: BP_DIAS 81
[2022-01-07] MEDS ORDERED: metoprolol tartrate 1mg/ml inj IV ONE (11:00)
[2022-01-07 11:07] VITALS: BP_SYST 134
--- NOTE | 2022-01-07 12:40 | NUR ---
Pt given and understands d/c instructions. IV d/c'd, catheter was intact. Ambulatory with a steady gait. Pt using her own O2 concentrator.
== END 2022-01-07 12:40 | disposition home or self-care (01) ==
LOC: ER 08:30
DX: R06.02 Shortness of breath (principal); Z20.822 Contact with and (suspected) exposure to COVID-19; F41.9 Anxiety disorder, unspecified; I48.91 Unspecified atrial fibrillation; I11.0 Hypertensive heart disease with heart failure; I50.9 Heart failure, unspecified; G89.29 Other chronic pain; F17.200 Nicotine dependence, unspecified, uncomplicated; Z98.890 Other specified postprocedural states; Z72.89 Other problems related to lifestyle; Z79.899 Other long term (current) drug therapy
CPT/HCPCS: 36415; 71045; 80053; 83880; 85025; 87635; 93005; 99285; C9803; J1940; J3490

== ENCOUNTER 2022-06-16 09:44 | Day surgery (SDC) | payer MEDICARE, MEDICAID ==
[2022-06-12 13:59] LABS: BASOPHILS # (AUTO) 0.1 X10'3 (0-0.2); EOSINOPHILS # (AUTO) 0.1 X10'3 (0-0.9); EOSINOPHILS % (AUTO) 1.4 % (0-6); HEMATOCRIT 43.4 % (35.0-45.0); HEMOGLOBIN 14.2 g/dl (12.0-16.0); LYMPHOCYTES # (AUTO) 0.7 X10'3 (1.1-4.8); LYMPHOCYTES % (AUTO) 11.7 % (21-51); MEAN CORPUSCULAR HEMOGLOBIN 30.3 PG (27.0-31.0); MEAN CORPUSCULAR HGB CONC 32.7 g/dL (33.0-36.5); MEAN CORPUSCULAR VOLUME 92.5 FL (78-98); MEAN PLATELET VOLUME 8.1 FL (7.4-10.4); MONOCYTES # (AUTO) 0.7 X10'3 (0-0.9); NEUTROPHILS # (AUTO) 4.6 X10'3 (1.8-7.7); NEUTROPHILS % (AUTO) 74.9 % (42-75); PLATELET COUNT 216 X10'3 (140-440); RED BLOOD COUNT 4.69 X10'6 (4.20-5.60); RED CELL DISTRIBUTION WIDTH 16.8 % (11.5-14.5); WHITE BLOOD COUNT 6.1 X10'3 (4.5-11.0)
[2022-06-12 14:04] LABS: ALBUMIN 3.3 G/DL (3.4-5.0); ANION GAP 7 (8-16); BLOOD UREA NITROGEN 23 MG/DL (7-18); BUN/CREATININE RATIO 21.5 (6.6-38.0); CALCIUM 8.7 MG/DL (8.5-10.1); CHLORIDE 103 MMOL/L (99-107); CREATININE 1.07 MG/DL (0.40-0.90); GLUCOSE 106 MG/DL (70-104); POTASSIUM 3.9 MMOL/L (3.5-5.1); SODIUM 140 MMOL/L (135-145); TOTAL CARBON DIOXIDE 29.7 MMOL/L (24-32); eGFR 51 ML/MIN
[2022-06-12 14:06] LABS: APTT 42 SECONDS (22-32)
[~2022-06-16] VITALS: Ht 152.4 cm; Wt 72.3 kg
[2022-06-16] VITALS (12 sets, daily range): BP systolic 72–114; BP diastolic 36–73
[~2022-06-16 09:44] MED LIST changes: -FURO40TA4 PO; +LORA-269 PO
[2022-06-16] MEDS ORDERED: fentaNYL/PF 50MCG/1 ML 2ML syringe IV ONE (10:10)
[2022-06-16] MEDS ORDERED: MIDAZolam 1mg/ml 10ml vial IV ONE (10:10)
[2022-06-16] MEDS ORDERED: EMPA10TA PO (10:15)
[2022-06-16] MEDS ORDERED: ESCI5TAB17 PO (10:15)
[2022-06-16] MEDS ORDERED: AMIO200T61 PO (10:15)
[2022-06-16] MEDS ORDERED: FURO40TA4 PO (10:15)
[2022-06-16] MEDS ORDERED: SACU1TAB PO (10:15)
[2022-06-16] MEDS ORDERED: LORA10TA7 PO (10:15)
[2022-06-16] MEDS ORDERED: BUSP5TAB3 PO (10:15)
[2022-06-16] MEDS ORDERED: POTA8TAB69 PO (10:15)
[2022-06-16] MEDS ORDERED: FURO20TA4 PO (10:15)
[2022-06-16] MEDS ORDERED: calcium PO (10:15)
== END 2022-06-16 15:20 | disposition home or self-care (01) ==
LOC: SSTAY O 09:44
PROVIDERS: ATTEND Student in an Organized Health Care Education/Training Program
DX: I48.0 Paroxysmal atrial fibrillation (principal); I10 Essential (primary) hypertension; Z79.899 Other long term (current) drug therapy; Z98.890 Other specified postprocedural states; Z86.73 Personal history of transient ischemic attack (TIA), and cerebral infarction without residual deficits
CPT/HCPCS: 36415; 80048; 85025; 85610; 85730; 92960; 93005; J2250; J3010; J7030

== ENCOUNTER → 2022-08-25 | Day surgery (SDC) | payer MEDICARE, MEDICAID ==
[~2022-08-25] VITALS: Ht 154.9 cm; Wt 75.4 kg
[~2022-08-25] MED LIST changes: +AMIO200T61 PO; +BUSP5TAB3 PO; +EMPA10TA PO; +ESCI5TAB17 PO; +FOLI0.4T14 PO; +FURO20TA4 PO; +FURO40TA4 PO; +HYDROcodone/acetaminophen 10/325mg tab PO PRN; +HYDROcodone/acetaminophen 5mg/325mg tablet PO PRN; +LIDOcaine 1% 30ml preserv. free vial ONE; -LISI10TA27 PO; -LORA-268 PO; -LORA-269 PO; +LORA10TA7 PO; +LORazepam 0.5 MG tablet PO PRN; +POTA8TAB69 PO; +SACU1TAB PO; +TIMOLOL; +calcium PO; +fentaNYL/PF 50MCG/1 ML 2ML syringe ONE; +iohexol 350 MG/ML 50ML vial IV ONE; +midazolam 1 mg/ML 2ml injection ONE; +normal saline 1,000 ML IV SCH
[2022-08-25 13:02] VITALS: BP 142/93
[2022-08-25 13:40] LABS: BASOPHILS # (AUTO) 0.1 X10'3 (0-0.2); BASOPHILS % (AUTO) 1.4 % (0-1); EOSINOPHILS # (AUTO) 0.1 X10'3 (0-0.9); EOSINOPHILS % (AUTO) 1.7 % (0-6); HEMATOCRIT 45.1 % (35.0-45.0); HEMOGLOBIN 14.8 g/dl (12.0-16.0); LYMPHOCYTES # (AUTO) 0.5 X10'3 (1.1-4.8); LYMPHOCYTES % (AUTO) 10.5 % (21-51); MEAN CORPUSCULAR HGB CONC 32.8 g/dL (33.0-36.5); MEAN CORPUSCULAR VOLUME 94.4 FL (78-98); MEAN PLATELET VOLUME 7.8 FL (7.4-10.4); MONOCYTES # (AUTO) 0.7 X10'3 (0-0.9); MONOCYTES % (AUTO) 14.9 % (2-12); NEUTROPHILS # (AUTO) 3.4 X10'3 (1.8-7.7); NEUTROPHILS % (AUTO) 71.5 % (42-75); PLATELET COUNT 163 X10'3 (140-440); RED BLOOD COUNT 4.78 X10'6 (4.20-5.60); RED CELL DISTRIBUTION WIDTH 15.7 % (11.5-14.5); WHITE BLOOD COUNT 4.7 X10'3 (4.5-11.0)
[2022-08-25 13:47] LABS: ALBUMIN 3.7 G/DL (3.4-5.0); ANION GAP 1 (8-16); BLOOD UREA NITROGEN 18 MG/DL (7-18); BUN/CREATININE RATIO 14.8 (6.6-38.0); CALCIUM 9.6 MG/DL (8.5-10.1); CHLORIDE 100 MMOL/L (99-107); CREATININE 1.22 MG/DL (0.40-0.90); GLUCOSE 75 MG/DL (70-104); POTASSIUM 3.8 MMOL/L (3.5-5.1); SODIUM 137 MMOL/L (135-145); TOTAL CARBON DIOXIDE 35.6 MMOL/L (24-32); eGFR 44 ML/MIN
[2022-08-25 13:48] LABS: APTT 30 SECONDS (22-32)
[2022-08-25 16:37] LABS: ISTAT HGB ART 16.3 g/dl (12.0-16.0); ISTAT Hct ART 48 %PCV (35-45); ISTAT O2 SATURATION ARTERIAL 45 % (95-98); ISTAT SOURCE ART
[2022-08-25 17:10] VITALS: BP 128/79
[2022-08-25 17:15] VITALS: BP 116/75
[2022-08-25 17:30] VITALS: BP 110/70
[2022-08-25 17:45] VITALS: BP 108/52
[2022-08-25 18:00] VITALS: BP 124/74
== END | disposition home or self-care (01) ==
LOC: SSTAY O 12:25
PROVIDERS: ATTEND Student in an Organized Health Care Education/Training Program
DX: I50.32 Chronic diastolic (congestive) heart failure (principal); I11.0 Hypertensive heart disease with heart failure; I27.20 Pulmonary hypertension, unspecified; I48.0 Paroxysmal atrial fibrillation; Z79.899 Other long term (current) drug therapy; Z98.890 Other specified postprocedural states
CPT/HCPCS: 33289; 36415; 80048; 82803; 85014; 85025; 85610; 85730; 99152; 99153; C1751; C1769; C2624; J1644; J2250; J3010; J3490; J7030; Q9967; A4615; A4620; A6258; A6449; C1894